=== PATIENT | female | born 1935 | race Caucasian/White ===

== ENCOUNTER 2018-10-24 03:31 | Emergency (ER) | payer MEDICARE, OTHER ==
[~2018-10-24] VITALS: Ht 165.1 cm; Wt 68.0 kg
--- NOTE | 2018-10-24 03:40 | NUR ---
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 TO ER BED 2. AAOX1. NO SOB, BREATHING EVEN AND UNLABORED. DENIES OF CHEST PAIN. CAME IN FOR S/P WITH LEFT HIP PAIN 10/10, NO EXTERAL ROTATION OR SHORTENING. NOTED ABRASION ON BRIDGE OF NOSE, HEMATOMA ON R ELBOW, ABRASSION ON RFA WITH SKIN TEAR, L HAND SKIN TEAR WITH PURLISH DISCOLORATION. PT STATES THAT SHE PASSED OUT PRIOR TO FALLING. PUPIL EQUAL IN SIZE. NO NEURO DEFICIT NOTED. AWAING MD FOR EVAL
--- NOTE | 2018-10-24 03:50 | NUR ---
AT BEDSIDE FOR EVAL
[2018-10-24] MEDS ORDERED: IV NS 0.9% 1,000 ML BAG IV ONE (04:00)
[2018-10-24] MEDS ORDERED: ONDANSETRON HCL/PF 4 MG/2 ML VIAL IVP ONE (04:00)
[2018-10-24] MEDS ORDERED: oxyCODONE/APAP (5/325 MG) 1 UDTAB TABLET PO ONE (04:00)
[2018-10-24] MEDS ORDERED: TDAP [DIPH/PERTUSSIS/TET] 0.5 ML VIAL IM ONE ×2 (04:00→04:07)
--- NOTE | 2018-10-24 04:05 | NUR ---
IV LINE OBTAINED ON R AC 20G. BLOOD DRAW AND SENT TO LAB
[2018-10-24] MEDS ORDERED: oxyCODONE/APAP (5/325 MG) 1 UDTAB TABLET ONE (04:07)
[2018-10-24] MEDS ORDERED: ONDANSETRON HCL/PF 4 MG/2 ML VIAL ONE (04:07)
--- NOTE | 2018-10-24 04:08 | NUR ---
PT BEING WHEELED TO CT ON [facility]
[2018-10-24 04:17] LABS: BASOPHILS # (AUTO) 0.1 /CMM (0.0-0.2); BASOPHILS % (AUTO) 1.2 % (0.0-2.0); EOSINOPHILS % (AUTO) 3.5 % (0.0-6.0); HEMATOCRIT 34 % (33-45); HEMOGLOBIN 11.5 g/dL (11.5-14.8); LYMPHOCYTES # (AUTO) 1.2 /CMM (0.8-4.8); LYMPHOCYTES % (AUTO) 18.7 % (20.0-44.0); MEAN CORPUSCULAR HGB CONC 34 g/dl (31.0-36.0); MEAN CORPUSCULAR VOLUME 86 fL (82-100); MONOCYTES # (AUTO) 0.4 /CMM (0.1-1.30); MONOCYTES % (AUTO) 5.9 % (2.0-12.0); NEUTROPHILS # (AUTO) 4.3 /CMM (1.8-8.9); NEUTROPHILS % (AUTO) 70.7 % (43.0-81.0); PLATELET COUNT (AUTO) 200 /CMM (150-450); RED BLOOD CELL COUNT(AUTO) 3.95 MIL/uL (4.0-5.2); WHITE BLOOD COUNT (AUTO) 6.1 K/uL (4.3-11.0)
[2018-10-24] MEDS ORDERED: INSU100I30 SQ (04:20)
[2018-10-24] MEDS ORDERED: CETI1SOL48 PO (04:20)
[2018-10-24] MEDS ORDERED: HYDR-4384 PO (04:20)
[2018-10-24] MEDS ORDERED: CHOL200026 PO (04:20)
[2018-10-24] MEDS ORDERED: ASPI-605 PO (04:20)
[2018-10-24] MEDS ORDERED: OMEP20TA5 PO (04:20)
[2018-10-24] MEDS ORDERED: LEVO75TA7 PO (04:20)
[2018-10-24] MEDS ORDERED: INSU100I28 SQ (04:20)
[2018-10-24] MEDS ORDERED: FERR325T28 GT (04:20)
[2018-10-24] MEDS ORDERED: ACET-73 PO (04:20)
[2018-10-24] MEDS ORDERED: TRAZ-182 PO (04:20)
[2018-10-24] MEDS ORDERED: QUET25TA PO (04:20)
[2018-10-24] MEDS ORDERED: ATOR40TA GT (04:20)
[2018-10-24] MEDS ORDERED: SERT100T12 PO (04:20)
[2018-10-24 04:27] LABS: CALCIUM, SERUM 9.2 mg/dL (8.5-10.1); CARBON DIOXIDE 31 mmol/L (21-32); CHLORIDE 104 mmol/L (98-107); GLUCOSE 145 mg/dL (74-106); POTASSIUM 4.1 mmol/L (3.5-5.1); SODIUM SERUM 142 mmol/L (136-145); UREA NITROGEN, BLOOD 19 mg/dL (7-18)
[2018-10-24 04:32] LABS: ALANINE AMINOTRANSFERASE 17 U/L (12-78); ALBUMIN 3.8 g/dL (3.4-5.0); ALKALINE PHOSPHATASE 104 U/L (46-116); ASPARTATE AMINOTRANSFERASE 13 U/L (15-37); BILIRUBIN,DIRECT 0.1 mg/dL (0.0-0.2); BILIRUBIN,TOTAL 0.3 mg/dL (0.2-1.0); TOTAL PROTEIN, SERUM 7.5 g/dL (6.4-8.2)
--- NOTE | 2018-10-24 04:54 | NUR ---
GERARD COLE ON PHONE TALKING WITH DR. ERIC
--- NOTE | 2018-10-24 05:00 | NUR ---
PT RETURNED FROM CT.
--- NOTE | 2018-10-24 05:01 | NUR ---
PT BACK FROM RADIOLOGY
--- NOTE | 2018-10-24 05:04 | NUR ---
EKG AT BEDSIDE BY TECH
--- NOTE | 2018-10-24 05:06 | NUR ---
MEDICATION WAS GIVEN AT 0505. PT HAVE ALREADY GONE TO CT WHEN MEDICATION ORDERS WERE RECEIVED. PT CAME BACK TO ER AT 0501.
--- NOTE | 2018-10-24 05:17 | NUR ---
EKG NOTED WITH L BUNDLE BRANCH BLOCK
--- NOTE | 2018-10-24 05:28 | NUR ---
PT ACCEPTED TO [facility] BY DR PALUMBO. # FOR REPORT [phone]. ETA [phone]
--- NOTE | 2018-10-24 05:55 | NUR ---
WOUND CARE DONE. L HAND SKIN TEAR CLEANSE WITH NS PAT DRY COVERED WITH TELFA AND WRAPPED WITH KERLIX, RFA SKIN TEAR CLEANSE WITH NS, PAT DRY COVERED WITH TELFA DRESSING AND WRAPPED WITH KERLIX. NOSE ABRASSION CLEANSE WITH NS LEFT OPEN TO AIR.
--- NOTE | 2018-10-24 06:07 | NUR ---
REPORT GIVEN TO DANYEL DAHL AT [facility].
--- NOTE | 2018-10-24 06:25 | NUR ---
HIP XRAY DONE AT THE BEDSIDE.
[2018-10-24 06:26] VITALS: BP 140/60
--- NOTE | 2018-10-24 06:49 | NUR ---
HIP XRAYS ARE NEGATIVE FOR FX. [facility] WAS NOTIFIED PER DR. HINES.
--- NOTE | 2018-10-24 06:55 | NUR ---
CALL FROM [facility], ETA [phone]
--- NOTE | 2018-10-24 07:10 | NUR ---
ETA FOR [facility]BULANCE TRANSFER TO [facility] IS [phone]
--- NOTE | 2018-10-24 07:18 | NUR ---
REPORT GIVEN TO DANYEL AVILA FOR ELISA.
--- NOTE | 2018-10-24 08:26 | NUR ---
patient trasnferred to [facility], in no apparent distress noted. Vital signs are stable.
== END 2018-10-24 08:20 | disposition short-term general hospital (02) ==
LOC: ER 03:32
DX: S61.412A Laceration without foreign body of left hand, initial encounter (principal); S80.02XA Contusion of left knee, initial encounter; S80.01XA Contusion of right knee, initial encounter; S50.01XA Contusion of right elbow, initial encounter; S00.33XA Contusion of nose, initial encounter; R55 Syncope and collapse; I10 Essential (primary) hypertension; I25.2 Old myocardial infarction; E78.5 Hyperlipidemia, unspecified; E11.9 Type 2 diabetes mellitus without complications; F32.9 Major depressive disorder, single episode, unspecified; E03.9 Hypothyroidism, unspecified; W18.39XA Other fall on same level, initial encounter; Y93.89 Activity, other specified; Y92.89 Other specified places as the place of occurrence of the external cause; Y99.8 Other external cause status
CPT/HCPCS: 36415; 70450; 71045; 72125; 72128; 72131; 72170; 73080; 73130; 73502; 73503; 73564 ×2; 80048; 80076; 84484; 85025; 85730; 90471; 90715; 93005; 96361; 96374; 99285; J2405; J7030

== ENCOUNTER 2019-05-14 02:20 | Emergency (ER) | payer OTHER ==
[~2019-05-14] VITALS: Ht 170.2 cm; Wt 66.7 kg
[~2019-05-14 02:20] MED LIST: ACET-73 PO; ASPI-605 PO; ATOR40TA GT; CETI1SOL48 PO; CHOL200026 PO; FERR325T28 GT; HYDR-4384 PO; INSU100I28 SQ; INSU100I30 SQ; LEVO75TA7 PO; OMEP20TA5 PO; QUET25TA PO; SERT100T12 PO; TRAZ-182 PO
[2019-05-14] MEDS ORDERED: IV NS 0.9% 1,000 ML BAG IV ONE (02:30)
[2019-05-14] MEDS ORDERED: ONDANSETRON HCL/PF 4 MG/2 ML VIAL IVP ONE (02:30)
--- NOTE | 2019-05-14 02:30 | NUR ---
BIBA REPORTING HIGH BLOOD SUGAR. PT ALERT AND RESPONSIVE. NOTED W/ FREQUENT SRY COUGH.
--- NOTE | 2019-05-14 02:39 | NUR ---
RT NOTE Late Entry: ABG taken and results given to MD Pulido. Due to critical results of low P02, pt is kept on NRB mask @ 15LPM per MD Pulido. Will continue to monitor.
[2019-05-14 02:40] LABS: ABG BASE EXCESS -2.5 mmol/L; ABG OXYGEN SATURATION 85.4 % (92.0-98.5); ABG PCO2 42.4 mmHg (35.0-45.0); ABG PH 7.352 (7.350-7.450); ABG PO2 55.9 mmHg (75.0-100.0); AaDO2 614.7 mmHg; COHb 1.5 % (0.5-1.5); MetHb 0.3 % (0.0-1.5); O2Hb 83.9 % (94.0-97.0); SITE, ABG Right Radial
[2019-05-14] MEDS ORDERED: ONDANSETRON HCL/PF 4 MG/2 ML VIAL ONE (02:43)
[2019-05-14 02:55] LABS: BASOPHILS % (AUTO) 0.2 % (0.0-2.0); HEMATOCRIT 35 % (33-45); HEMOGLOBIN 11.1 g/dL (11.5-14.8); LYMPHOCYTES # (AUTO) 0.4 /CMM (0.8-4.8); LYMPHOCYTES % (AUTO) 2.2 % (20.0-44.0); MEAN CORPUSCULAR HGB CONC 32 g/dl (31.0-36.0); MEAN CORPUSCULAR VOLUME 87 fL (82-100); MONOCYTES # (AUTO) 0.8 /CMM (0.1-1.30); MONOCYTES % (AUTO) 4.4 % (2.0-12.0); NEUTROPHILS # (AUTO) 17.6 /CMM (1.8-8.9); NEUTROPHILS % (AUTO) 93.2 % (43.0-81.0); PLATELET COUNT (AUTO) 232 /CMM (150-450); RED BLOOD CELL COUNT(AUTO) 4.04 MIL/uL (4.0-5.2); WHITE BLOOD COUNT (AUTO) 18.8 K/uL (4.3-11.0)
[2019-05-14 03:08] LABS: ALANINE AMINOTRANSFERASE 20 U/L (12-78); ALBUMIN 3.6 g/dL (3.4-5.0); ALKALINE PHOSPHATASE 106 U/L (46-116); ASPARTATE AMINOTRANSFERASE 17 U/L (15-37); BILIRUBIN,DIRECT 0.1 mg/dL (0.0-0.2); BILIRUBIN,TOTAL 0.4 mg/dL (0.2-1.0); CALCIUM, SERUM 9.2 mg/dL (8.5-10.1); CARBON DIOXIDE 28 mmol/L (21-32); CHLORIDE 101 mmol/L (98-107); CREATININE 1.4 mg/dL (0.6-1.3); LIPASE 42 U/L (73-393); POTASSIUM 5.2 mmol/L (3.5-5.1); SODIUM SERUM 137 mmol/L (136-145); TOTAL PROTEIN, SERUM 7.2 g/dL (6.4-8.2); UREA NITROGEN, BLOOD 31 mg/dL (7-18)
[2019-05-14 03:11] LABS: GLUCOSE 499 mg/dL (74-106)
--- NOTE | 2019-05-14 03:22 | NUR ---
Ozzie EPR[facility] called.
[2019-05-14] MEDS ORDERED: ASPIRIN 325 MG TABLET ONE (03:23)
[2019-05-14] MEDS ORDERED: FUROSEMIDE 40 MG/4 ML VIAL ONE (03:23)
--- NOTE | 2019-05-14 03:25 | NUR ---
HELD IVF W/ 400ML REMAINING.
[2019-05-14] MEDS ORDERED: FUROSEMIDE 40 MG/4 ML VIAL IV ONE (03:30)
[2019-05-14] MEDS ORDERED: ASPIRIN 325 MG TABLET PO ONE (03:30)
--- NOTE | 2019-05-14 03:35 | NUR ---
F/C INSERTED W/ 300 ML CLEAR YELLOW URINE OUTPUT
--- NOTE | 2019-05-14 03:37 | NUR ---
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
[2019-05-14] MEDS ORDERED: LORAZEPAM INJ 2 MG/ML VIAL ONE (03:54)
[2019-05-14] MEDS ORDERED: LORAZEPAM INJ 2 MG/ML VIAL IV ONE (04:00)
[2019-05-14] MEDS ORDERED: VANCOMYCIN 1 GM in IV D5W 250 ML IV ONE (04:00)
[2019-05-14] MEDS ORDERED: CEFEPIME 1 GM in IV D5W 50 ML IV ONE (04:00)
[2019-05-14] MEDS ORDERED: VANCOMYCIN 1 GM VIAL ONE (04:02)
[2019-05-14] MEDS ORDERED: CEFEPIME 1 GM VIAL ONE (04:02)
--- NOTE | 2019-05-14 04:45 | NUR ---
end time for vanco: 0545 RAC 20G
--- NOTE | 2019-05-14 05:27 | NUR ---
PT IS ACCEPTED AT [place], [place]. CCU BED 101 PHONE NUMBER FOR REPORT: . NURSE: HILARIO CERDA [facility] ETA: [phone]
--- NOTE | 2019-05-14 05:45 | NUR ---
Vancomycin 1 gram IVPB: start time:444 ; end time:544 : IV site: LAC 20G Port # 2
--- NOTE | 2019-05-14 06:01 | NUR ---
report given to Micah at [facility]
[2019-05-14 06:47] VITALS: BP 123/70
--- NOTE | 2019-05-14 06:51 | NUR ---
REPORT GIVEN TO LAY KRISHNAN FROM [facility]
--- NOTE | 2019-05-14 07:06 | NUR ---
PT WAS TRANSFERRED TO [facility] UNDER ACLS IN STABLE CONDITION VIA GURNEY. ALL BELONGINGS PICKED UP BY THE AMBULANCE.
== END 2019-05-14 07:09 | disposition short-term general hospital (02) ==
LOC: ER 02:22 → EDBD 02:22 → ER 07:09
DX: I21.4 Non-ST elevation (NSTEMI) myocardial infarction (principal); J18.9 Pneumonia, unspecified organism; I11.0 Hypertensive heart disease with heart failure; I50.9 Heart failure, unspecified; R11.2 Nausea with vomiting, unspecified; E78.5 Hyperlipidemia, unspecified; K21.9 Gastro-esophageal reflux disease without esophagitis; E11.9 Type 2 diabetes mellitus without complications; M19.90 Unspecified osteoarthritis, unspecified site; F32.9 Major depressive disorder, single episode, unspecified; G47.00 Insomnia, unspecified; E03.9 Hypothyroidism, unspecified; G30.9 Alzheimer's disease, unspecified; Z79.899 Other long term (current) drug therapy; Z79.4 Long term (current) use of insulin; Z79.82 Long term (current) use of aspirin
CPT/HCPCS: 36415; 36600 ×2; 71045; 80048; 80076; 82803; 82962 ×2; 83690; 83880; 84484 ×2; 85025; 87040 ×2; 93005; 96361; 96365; 96367; 96375; 99291; J0692; J1940; J2060; J2405; J3370; J7030; J7060